=== PATIENT | female | born 1970 | race African-American/Black ===

== ENCOUNTER 2021-01-11 13:29 | Emergency (ER) | payer SELFPAY ==
[2021-01-11 13:37] VITALS: BP 131/77; PULSE 79; RESP 16; TEMP 36.9; O2SAT 100
--- NOTE | 2021-01-11 14:26 | ED_ITS ---
HPI - Dental/Oral General Chief complaint: Dental/Oral Stated complaint: abcess in mouth Time Seen by Provider: 01/11/21 14:26 History of Present Illness HPI Narrative: complains of right lower dental pain and some gum swelling over the past 2 days no fever no difficulty breathing or swallowing Related Data Previous Rx's Medication Instructions Recorded clindamycin HCl 300 mg capsule 300 mg PO QID 7 Days #28 cap 01/11/21 hydrocodone 5 mg-acetaminophen 325 1 tab PO Q6H PRN #14 tab 01/11/21 mg tablet ibuprofen 600 mg tablet 600 mg PO Q6H PRN #20 tab 01/11/21 Allergies Allergy/AdvReac Type Severity Reaction Status Date / Time Penicillins Allergy Unknown Verified 01/11/21 13:37 tetracycline Allergy Itching Verified 01/11/21 13:37 Review of Systems Review of Systems: Positive for right lower dental pain Negatives are no fever no chills no difficulty breathing or swallowing no swell ing under the tongue no drooling no voice change no skin rash PMFSH Past Medical History Source: nursing notes reviewed Medical History (Updated 01/12/21 @ 00:01 by Merline Aguilar) No known health problems Social History Social History Advance Directives: No Advance Directives Information Provided: No Patient : No Physical Exam Vital Signs: Vital Signs: Last Vital Signs Temp 98.4 F 01/11/21 13:37 Pulse 79 01/11/21 13:37 Resp 16 01/11/21 13:37 BP 131/77 01/11/21 13:37 Pulse Ox 100 01/11/21 13:37 Body Mass Index 30.0 General appearance no acute distress The dental exam the right lower rear molar has decay there is some gum swelling but no fluctuance, there is mild facial swelling in the area but no redness again no fluctuance on the external face, full range of motion in the mandible there is no swelling under the tongue there is no impairment of breathing and swallowing no trismus no drooling The ear exam is normal with no redness to the either tympanic membrane and both canals were normal The pharynx was clear with no redness swelling or exudate, mucous membranes moist and voice was normal Respiratory no distress Skin no rash Course Course Course Narrative: Patient is treated with antibiotic and discharged to follow with dentist Discharge Plan Discharge Clinical Impression: Dental abscess Patient Disposition: Home, Self-Care Additional Instructions: I aspirated the gum that was swollen and no pus came out Rinse with warm water or salt water frequently Follow with dentist as soon as you can Return to the ER any time for worse pain and swelling fever difficulty breathing or swallowing swelling under the tongue any worse condition or any concerns Prescriptions: New clindamycin HCl 300 mg capsule 300 mg PO QID 7 Days Qty: 28 RF: 0 hydrocodone-acetaminophen 5-325 mg tablet 1 tab PO Q6H PRN (Reason: pain) Qty: 14 RF: 0 ibuprofen 600 mg tablet 600 mg PO Q6H PRN (Reason: pain) Qty: 20 RF: 0 Interventions: ED Discharge Assessment Last Done: 01/11/21 15:31 Discharge Date/Time: 01/11/21 15:32
[2021-01-11] MEDS: Clindamycin HCL 300 MG CAPSULE PO (14:46)
[2021-01-11] MEDS: Lidocaine HCl 1 % MPF 5 ML VIAL SUBCUT (14:46)
== END 2021-01-11 15:32 | disposition home or self-care (01) ==
PROVIDERS: Emergency Provider Emergency Medicine
DX: K04.7 Periapical abscess without sinus (principal)
CPT/HCPCS: 41800; 99283; 99284